=== PATIENT | female | born 1965 | race Caucasian/White ===

== ENCOUNTER → 2024-04-15 15:55 | Outpatient (REF) | payer OTHER, SELFPAY ==
[2024-04-15 12:02] LABS: % Basophils 0.6 % (0-2); % Lymphocytes 21.6 % (20.5-51.1); % Monocytes 5.9 % (1.7-9.3); % Neutrophils 70.9 % (42.2-75.2); Absolute Eosinophils 0.1 10^3/uL (0-0.7); Absolute Lymphocytes 1.4 10^3/uL (1.2-3.4); Absolute Monocytes 0.4 10^3/uL (0.1-0.6); Absolute Neutrophils 4.5 10^3/uL (1.4-6.5); Hematocrit 43.7 % (37.0-47.0); Hemoglobin 14.6 g/dL (12.0-16.0); Mean Corp Hgb Conc. 33.4 g/dL (33.0-37.0); Mean Corpuscular Hgb 32.6 pg (27.0-31.0); Mean Corpuscular Volume 97.5 fL (81.0-99.0); Platelet Count 229 10^3/uL (130-400); Red Blood Cell Count 4.48 10^6/uL (4.20-5.40); Red Cell Dist. Width 12.9 % (11.5-14.5); White Blood Cell Count 6.3 10^3/uL (4.8-10.8)
== END ==
LOC: OIDL 15:55
PROVIDERS: ATTENDING PHYSICIAN Internal Medicine Hematology & Oncology
DX: C20 Malignant neoplasm of rectum (principal)
CPT/HCPCS: 85025

== ENCOUNTER 2024-04-29 11:43 | Emergency (ER) | payer OTHER, SELFPAY ==
[2024-04-29 12:17] VITALS: BP 136/98
--- NOTE | 2024-04-29 12:29 | ED.PDOC.TRB ---
ED Provider Triage
-
Patient seen by provider in Triage?: Seen in Triage
59 female history of rectal/colon CA presenting to the emergency department for evaluation of headache and generalized bodyaches. CT scans of the chest abdomen pelvis done in November showed no evidence for metastatic disease. Patient states that
she is prone to generalized bodyaches when her ferritin is very high. Also has a history of migraines and this feels similar. No acute neurologic symptoms. No fevers. Patient does appear uncomfortable but is otherwise stable. Labs ordered.
Deferring CT imaging to further workup in the ER.
[2024-04-29 13:06] LABS: ALT (SGPT) 22 U/L (0-35); AST (SGOT) 28 U/L (14-36); Albumin 4.6 g/dl (3.5-5.0); Alkaline Phosphatase 110 U/L (38-126); Blood Urea Nitrogen 14 mg/dl (7-17); Calcium 9.1 mg/dl (8.4-10.2); Carbon Dioxide 26 mmol/L (22-30); Chloride 103 mmol/L (98-107); Glucose 109 mg/dl (70-99); Sodium 140 mmol/L (135-145); Total Bilirubin 1.1 mg/dl (0.2-1.3); Total Protein 7.3 g/dl (6.3-8.2); eGFR > 60.00
[2024-04-29 13:09] LABS: % Basophils 0.7 % (0-2); % Eosinophils 1.8 % (0-6); % Immature Granulocytes 0.4 % (0-0.5); % Lymphocytes 27.7 % (20.5-51.1); % Monocytes 8.6 % (1.7-9.3); % Neutrophils 60.8 % (42.2-75.2); Absolute Basophils 0.1 10^3/uL (0-0.2); Absolute Eosinophils 0.2 10^3/uL (0-0.7); Absolute Lymphocytes 2.3 10^3/uL (1.2-3.4); Absolute Monocytes 0.7 10^3/uL (0.1-0.6); Hematocrit 42.1 % (37.0-47.0); Hemoglobin 15.3 g/dL (12.0-16.0); Mean Corp Hgb Conc. 36.3 g/dL (33.0-37.0); Mean Corpuscular Hgb 32.1 pg (27.0-31.0); Mean Corpuscular Volume 88.3 fL (81.0-99.0); Mean Platelet Volume 9.3 fL (7.4-10.4); Nucleated Red Blood Cells % 0 %; Platelet Count 199 10^3/uL (130-400); Red Blood Cell Count 4.77 10^6/uL (4.20-5.40); White Blood Cell Count 8.2 10^3/uL (4.8-10.8)
[2024-04-29 14:04] LABS: Erythrocyte Sed Rate 13 mm/hour (0-20)
[2024-04-29] MEDS: NSS 1000 IV (14:25)
[2024-04-29] MEDS: BENADRYL 25 MG IV (14:31)
[2024-04-29] MEDS: REGLAN 10 MG IV (14:32)
[2024-04-29] MEDS: TORADOL 30 MG IV (14:36)
[2024-04-29 14:50] VITALS: BP 113/75
--- NOTE | 2024-04-29 15:30 | ED.GENMED ---
History of Present Illness
General
Chief Complaint: Headache
Source: patient
Exam Limitations: none
Time Seen by Provider: 04/29/24 13:20
Nursing documentation reviewed up to this point in time: agreed with
Travel History
Have you had any contact with someone who has COVID-19?: No
Do you have any symptoms of coronavirus? Fever > 100 degrees, chills, cough, shortness of breath, sore throat, loss of taste or smell, muscle aches, or headache?: No
History of Present Illness
History of Present Illness:
59-year-old female past medical history of hypothyroidism and migraine diagnosis presenting to the emergency department today with concerns of a headache is diffuse achy over the past 2 days also had bodyaches over the past few weeks has a history
of high ferritin levels in the past and believes that she has had achiness from this in the past. She denies any history of autoimmune disorders. Denies any fevers or recent illness
Past History
Past History
ED Past Medical History: Other (Ovarian cyst, endometriosis)
ED Past Surgical History: Gynecological
Social History
Tobacco: Non-smoker
Alcohol: None
Drug: None
Review of Systems
Review of Systems
Allergies reviewed?: Yes
All Other Systems: ROS reviewed and negative except as documented in HPI and ROS
Phy Exam
Physical Exam
Physical Exam:
GENERAL: Alert , in no apparent distress
EYE: pupils equal and reactive
NECK: Supple, no significant adenopathy.
ENT: o/p clr, mmm.
CARDIAC: Regular rate and rhythm .
LUNGS: Clear breath sounds bilaterally, no acute respiratory distress, no wheezes/rales/rhonchi
ABDOMEN: Soft, without focal tenderness, no r/g, no cvat
NEUROLOGICAL: Alert and oriented, no focal neuro deficits 5-5 upper and lower extremity strength normal sensation palpating bilaterally normal finger-nose and [id number] no pronator drift
SKIN: Warm and dry, skin intact.
MUSCULOSKELETAL: No edema, well perfused.
PSYCH: Normal and appropriate interaction.
Course
Orders/Labs/Results
Orders:
Orders
04/29/24 12:41
Complete Blood Count/With Diff Urgent
Comprehensive Metabolic Panel Urgent
Ferritin Urgent
Lyme Progressive Urgent
Comment: LYME PROGRESSIVE ADDED ON BY FLOOR 1:50PM 04-29-24
Sed Rate [Erythrocyte Sed Rate] Urgent
04/29/24 13:49
Add On- LAB Urgent
Tests Added?: lyme progressive
04/29/24 13:50
0.9% Sodium Chloride 1000 ml [Nss] 1,000 ml IV BOLUS
Diphenhydramine [Benadryl] 25 mg IV NOW STA
Ketorolac [Toradol] 30 mg IV NOW STA
Metoclopramide [Reglan] 10 mg IV NOW STA
04/29/24 14:35
Ketorolac [Toradol] 30 mg .ROUTE .STK-MED ONE
Abnormal Lab Results
04/29/24
12:41
MCH 32.1 H pg
(27.0-31.0)
Absolute Monos (auto) 0.7 H 10^3/uL
(0.1-0.6)
Glucose 109 H mg/dl
(70-99)
04/29/24 12:41
04/29/24 12:41
Vital Signs
Initial and Last Documented VS:
Initial Vital Signs
Temp Pulse Resp BP Pulse Ox
98.3 F 94 16 136/98 98
04/29/24 12:17 04/29/24 12:17 04/29/24 12:17 04/29/24 12:17 04/29/24 12:17
Last Documented Vital Signs
Temp Pulse Resp BP Pulse Ox
98.3 F 87 20 113/75 98
04/29/24 12:17 04/29/24 14:50 04/29/24 14:50 04/29/24 14:50 04/29/24 14:50
MDM/Problems Addressed
MDM/Problems Addressed:
59-year-old female presenting to the emergency department today with concerns of headache over the past 2 days. No fevers no neck pain no neurologic symptoms no red flag symptoms of headache. Patient's vital signs are normal patient generally
well-appearing labs were obtained without acute abnormalities normal ferritin level normal labs otherwise. Lyme titers were drawn as she claims that she is outside very often. Patient was given headache medication Reglan Toradol and Benadryl with
improvement of the headache patient in no distress throughout ER stay stable for outpatient management and advised for very close follow-up with the primary care doctor. Lyme test still pending. Return precautions were given.
*Critical Care Note
Total Time (30-74mins, 75-104mins- exclusive of procedures): Not Applicable
ED Attending Note
-
Portions of this chart may have been created with voice recognition software.� Occasional wrong word or��sound alike� substitutions may have occurred due to the inherent limitations of voice recognition software.
Discharge Plan
Departure
Patient Disposition: Home (Routine Discharge)
Date of Disposition: 04/29/24
Time of Disposition: 15:57
Patient with high blood pressure during this ER visit?: No
Condition: Good
Covid-19: Not Applicable
Discharge Problem:
Headache
Instructions: Headache, Adult (DC)
Prescriptions:
No Action
levothyroxine 100 MCG tablet
100 mcg PO DAILY
multivitamin Tablet
1 tab PO DAILY
Aimovig Autoinjector 70 mg/mL Auto-Injector
70 mg SC QMONTH
PreserVision AREDS [id number] Capsule
1 cap PO DAILY
Referrals:
Gm Freitas MD [Family Provider] -
Activity Restrictions/Additional Instructions:
You came to the emergency department today with concerns of headache and bodyaches. Here your labs are normal vital signs normal. Please have close with the primary care doctor for ongoing symptoms for further assessment. Return to the emergency
department for any worsening, new or concerning symptoms.
Interventions
Interventions:
*Risk Screen - Suicide Last Done: 04/29/24 14:54
*General Assessment Last Done: 04/29/24 14:51
*Neglect/Abuse Screening Last Done: 04/29/24 14:51
*ED COVID-19 Vaccine History Last Done: 04/29/24 12:17
ED- Neurological Assessment Last Done: 04/29/24 14:54
Discharge Date and Time
Print Language: WELSH
[2024-04-29 16:02] VITALS: BP 125/81
[2024-05-03 14:33] LABS: Lyme Antibody Screen, EIA Negative (Negative)
== END 2024-04-29 16:07 | disposition home or self-care (01) ==
LOC: EMR 11:43
PROVIDERS: Physician Assistant Medical; EMERGENCY PHYSICIAN Emergency Medicine; FAMILY PHYSICIAN Internal Medicine
DX: R51.9 Headache, unspecified (principal); R11.0 Nausea; E03.9 Hypothyroidism, unspecified; N83.209 Unspecified ovarian cyst, unspecified side; N80.9 Endometriosis, unspecified
CPT/HCPCS: 99284; 96374; 96375 ×2; 96361; 80053; 82728; 85025; 85652; 86618

== ENCOUNTER → 2024-06-30 09:08 | Outpatient (REF) | payer OTHER, SELFPAY | LOC: HWRAD 09:08 | PROVIDERS: ATTENDING PHYSICIAN Internal Medicine Hematology & Oncology; FAMILY PHYSICIAN Internal Medicine | DX: E83.10 Disorder of iron metabolism, unspecified (principal); C20 Malignant neoplasm of rectum | CPT/HCPCS: 71260; 74160; Q9967 ==

== ENCOUNTER → 2024-07-12 16:30 | Outpatient (REF) | payer OTHER, SELFPAY | LOC: MRI 3T 16:30 | PROVIDERS: ATTENDING PHYSICIAN Internal Medicine Hematology & Oncology; FAMILY PHYSICIAN Internal Medicine | DX: E83.10 Disorder of iron metabolism, unspecified (principal) | CPT/HCPCS: 74183; A9575 ==

== ENCOUNTER → 2024-07-16 10:51 | Outpatient (REF) | payer OTHER, SELFPAY | LOC: HWRAD 10:51 | PROVIDERS: ATTENDING PHYSICIAN Internal Medicine Hematology & Oncology; FAMILY PHYSICIAN Internal Medicine | DX: C20 Malignant neoplasm of rectum (principal); E83.10 Disorder of iron metabolism, unspecified; R93.2 Abnormal findings on diagnostic imaging of liver and biliary tract | CPT/HCPCS: 76705 ==

== ENCOUNTER → 2024-08-18 10:00 | Outpatient (REF) | payer OTHER, SELFPAY | LOC: RAD 10:00 | PROVIDERS: ATTENDING PHYSICIAN Internal Medicine Hematology & Oncology; FAMILY PHYSICIAN Internal Medicine | DX: C20 Malignant neoplasm of rectum (principal); E83.10 Disorder of iron metabolism, unspecified; R93.2 Abnormal findings on diagnostic imaging of liver and biliary tract | CPT/HCPCS: 71260; 74177; Q9967 ==